=== PATIENT | female | born 1940 | race African-American/Black ===

== ENCOUNTER 2019-11-03 14:31 | Inpatient (IN) | payer MEDICARE, OTHER ==
[~2019-11-03] VITALS: Ht 162.6 cm; Wt 52.6 kg
--- NOTE | 2019-11-03 14:35 | NUR ---
pt bib private ambulance from [facility] to be medically cleared, for psych eval. pt restless and non-cooperative at this time.
--- NOTE | 2019-11-03 14:46 | NUR ---
security standby at bedside for safety precautions.
[2019-11-03] MEDS ORDERED: HALOPERIDOL LACTATE 5 MG/1 ML VIAL ONE (14:56)
[2019-11-03] MEDS ORDERED: LORAZEPAM 2 MG/1 ML VIAL ONE (14:57)
[2019-11-03] MEDS ORDERED: LORAZEPAM 2 MG/1 ML VIAL IM ONE (15:00)
[2019-11-03] MEDS ORDERED: HALOPERIDOL LACTATE 5 MG/1 ML VIAL IM ONE (15:00)
[2019-11-03] MEDS ORDERED: ATOR40TA PO (15:48)
[2019-11-03] MEDS ORDERED: MEMA10TA PO (15:48)
[2019-11-03] MEDS ORDERED: MULT-594 PO (15:48)
[2019-11-03] MEDS ORDERED: AMIN30LI2 PO (15:48)
[2019-11-03] MEDS ORDERED: CLON1PAT TD (15:48)
[2019-11-03] MEDS ORDERED: METO25TA6 PO (15:48)
[2019-11-03] MEDS ORDERED: NA P133E RC (15:48)
[2019-11-03] MEDS ORDERED: MAGN400O6 PO (15:48)
[2019-11-03] MEDS ORDERED: ACET-2154 PO (15:48)
[2019-11-03] MEDS ORDERED: ISOS30TA6 PO (15:48)
[2019-11-03] MEDS ORDERED: HYDR50TA68 PO (15:48)
[2019-11-03] MEDS ORDERED: DIVA125C2 PO (15:48)
[2019-11-03] MEDS ORDERED: LOPE2CAP PO (15:48)
[2019-11-03 15:59] LABS: BASOPHILS # (AUTO) 0.1 K/uL (0.0-8.0); EOSINOPHILS # (AUTO) 0.2 K/uL (0.0-0.7); EOSINOPHILS % (AUTO) 3.1 % (0.0-7.0); HEMATOCRIT 32.4 % (31.2-41.9); HEMOGLOBIN 10.8 g/dL (10.9-14.3); LYMPHOCYTES # (AUTO) 2.7 K/uL (20.0-40.0); LYMPHOCYTES % (AUTO) 53.6 % (20.5-51.5); MEAN CORPUSCULAR HEMOGLOBIN 30.9 uug (24.7-32.8); MEAN CORPUSCULAR HGB CONC 33 g/dL (32.3-35.6); MEAN CORPUSCULAR VOLUME 93.1 fL (75.5-95.3); MONOCYTES # (AUTO) 0.5 K/uL (2.0-10.0); MONOCYTES % (AUTO) 10.8 % (0.0-11.0); NEUTROPHILS # (AUTO) 1.6 K/uL (1.8-8.9); NEUTROPHILS % (AUTO) 31.5 % (38.5-71.5); PLATELET COUNT (AUTO) 205 K/uL (179-408); RED BLOOD CELL COUNT(AUTO) 3.48 MIL/uL (3.63-4.92)
[2019-11-03 16:20] LABS: MAGNESIUM 1.8 mg/dL (1.8-2.4)
[2019-11-03 16:22] LABS: ALANINE AMINOTRANSFERASE 19 U/L (14-59); ALKALINE PHOSPHATASE 85 U/L (50-136); ASPARTATE AMINOTRANSFERASE 23 U/L (15-37); BILIRUBIN,DIRECT 0.1 mg/dL (0.0-0.2); BILIRUBIN,TOTAL 0.3 mg/dL (0.2-1.0); CARBON DIOXIDE 29 mmol/L (21-32); CHLORIDE 101 mmol/L (98-107); CREATININE 0.9 mg/dL (0.6-1.3); GLUCOSE 95 mg/dL (74-106); POTASSIUM 3.9 mmol/L (3.5-5.1); TOTAL PROTEIN, SERUM 6.3 g/dL (6.4-8.2); UREA NITROGEN, BLOOD 11 mg/dL (7-18)
[2019-11-03 16:23] LABS: ACETAMINOPHEN < 2.0 ug/mL (10-30)
[2019-11-03 16:29] LABS: *BILIRUBIN,URIN NEGATIVE (NEGATIVE); *BLOOD, URINE NEGATIVE (NEGATIVE); *COLOR,URINE YELLOW (YELLOW); *KETONES,URINE NEGATIVE (NEGATIVE); *UROBILINOGEN,URINE 0.2 E.U./dl (NORMAL); LEUKOCYTE ESTERASE ,URINE 1+ (NEGATIVE); NITRITE, URINE POSITIVE (NEGATIVE); PH,URINE 7.5 (5.0-8.0); UGLUCOSE NEGATIVE (NEGATIVE)
[2019-11-03 16:29] LABS: THYROID STIMULATING HORMONE 1.239 mIU/mL (0.358-3.740)
[2019-11-03 16:32] LABS: ETHANOL < 3 MG/DL (0-0)
[2019-11-03 16:54] LABS: *AMPHETAMINE, URINE NEGATIVE (NEGATIVE); *BARBITURATE, URINE NEGATIVE (NEGATIVE); *CANNABINOID, URINE NEGATIVE (NEGATIVE); *COCCAINE, URINE NEGATIVE (NEGATIVE); *OPIATE, URINE NEGATIVE (NEGATIVE); *PHENCYCLIDINE SCREEN,URINE NEGATIVE (NEGATIVE)
[2019-11-03] MEDS ORDERED: CEFEPIME HCL 1 G VIAL IM ONE (17:15)
[2019-11-03] MEDS ORDERED: CEFEPIME HCL 1 G VIAL ONE (17:36)
--- NOTE | 2019-11-03 17:49 | NUR ---
pt has been placed on 5150 hold for GD at 1720 on 11/03/2019
--- NOTE | 2019-11-03 18:30 | NUR ---
called [facility] to give admitting report, unable to reach nurse.
[2019-11-03 18:35] LABS: *CLARITY,URINE SLIGHTLY HAZY (CLEAR); BACTERIA,URINE MODERATE /HPF (NONE SEEN); RBC,URINE 0-3 /HPF (0-3)
--- NOTE | 2019-11-03 18:49 | NUR ---
sriram report given to Benjamin WHEELER
--- NOTE | 2019-11-03 19:00 | NUR ---
Pt. admitted to GPS 145C , under care of Dr. Sotelo/Mani Belongs List completed
[2019-11-03 20:24] VITALS: BP 124/57
[2019-11-03] MEDS ORDERED: MAGNESIUM HYDROXIDE 30 ML LIQUID UDC PO PRN (20:30)
[2019-11-03] MEDS ORDERED: MAG HYDROX/AL HYDROX/SIMETH 30 ML LIQUID UDC PO PRN (20:30)
[2019-11-03] MEDS: LORAZEPAM 0.5 MG TABLET PO PRN (20:45)
--- NOTE | 2019-11-04 02:35 | NUR ---
GPS/RN: NEW ADMIT 79Y/O FEMALE TO MHU FROM ER. PT ON 5150 FOR GD UNDER THE CARE OF DR BAER AND DR CHAVARRIA WITH DX OF PSYCHOSIS. ACCORDING TO THE 5150, PT WAS AGGRESSIVE AND RESTLESS, UNMANAGEABLE AT THE FACILITY. PT WAS HITTING OTHERS AND RESTLESS. UPON FACE TO FACE ASSESSMENT, PT A/OX1, AND CONFUSE. PT WAS NOT ABLE TO COMMUNICATE COHERENTLY. PT REFUSED SHOWER. PT RIGHT HANDBOOK AND ADVISEMENT GIVEN, UNIT RULES UNABLE TO EXPLAINED DUE TO PT CONDITION. MD'S NOTIFIED AND ORDERS PLACED. PT SON CALLED AND NOTIFIED OF ADMISSION TO UNIT. Q/15MNS ROUNDING INITIATED FOR SAFETY.
[2019-11-04] MEDS ORDERED: BLOOD SUGAR DIAGNOSTIC 1 EACH STRIP VI ONE (06:00)
[2019-11-04 07:30] VITALS: BP 159/56
--- NOTE | 2019-11-04 08:00 | NUR ---
GPS: received patient in erma chair, patient somewhat confused at this time, patient able top eat her breakfast , assisted with shower, denies SI and HI
--- NOTE | 2019-11-04 08:51 | NUR ---
SNF CONTACT: SW received a call from Luzmaria facility coordinator at [facility] ([facility]) located at [address] [place] [id number]; ([phone]) stating that pt will be returning to the facility once stable for discharge.
--- NOTE | 2019-11-04 09:31 | NUR ---
INITIAL DISCHARGE PLAN: Pt currently resides and will return to [facility] located at [address] [place] [id number]; [phone]. Per son Rojelio [phone] he wishes for pt to return back to the facility. CAROLYN will work with the pt and the MD regarding appropriate discharge planning. SW will form a safe and proper discharge.
[2019-11-04] MEDS: METOPROLOL TARTRATE 25 MG TABLET PO SCH ×2 (12:30→20:21)
[2019-11-04] MEDS ORDERED: CLONIDINE-TTS 1 PATCH TD SCH (12:30)
[2019-11-04] MEDS: DIVALPROEX SPRINKLE 125 MG CAP.SPRINK PO SCH ×2 (12:48→16:30)
[2019-11-04] MEDS: risperiDONE 0.5 MG TABLET PO SCH ×2 (12:48→20:22)
[2019-11-04] MEDS: MEMANTINE HCL 5 MG TABLET PO SCH ×2 (13:07→20:22)
[2019-11-04] MEDS: SULFAMETH/TRIMETH 800/160 MG TABLET PO SCH ×2 (13:07→20:21)
[2019-11-04 16:09] VITALS: BP 173/1
[2019-11-04] MEDS: PROTEIN SUPPLEMENT (PROSTAT) 30 ML LIQUID PO SCH (16:31)
[2019-11-04] MEDS: hydrALAZINE HCL 50 MG TABLET PO SCH (16:31)
[2019-11-04] MEDS: ATORVASTATIN 40 MG TABLET PO SCH (17:08)
[2019-11-04 20:12] VITALS: BP 170/68
[2019-11-04] MEDS: CULTURELLE CAPSULE PO SCH (20:22)
[2019-11-04] MEDS: LORAZEPAM 0.5 MG TABLET PO PRN (21:29)
[2019-11-04 21:45] VITALS: BP 139/75
[2019-11-05] MEDS: LORAZEPAM 0.5 MG TABLET PO PRN ×2 (05:59→21:57)
--- NOTE | 2019-11-05 06:53 | NUR ---
PT SLEPT 7 H. PT ANXIOUS AND KEEPS REPEATING THAT SHE NEEDS A DIAPER CHANGED BUT WHEN STAFF CHECKED PT IS DRY AND NO BOWEL MOVEMENT. PT GIVEN ATIVAN AT 2129H and 0559h FOR RESTLESSNESS AND ANXIETY. PT TOLERATED IT WELL. PT BLOOD PRESSURE WAS 170/68 FOR PT WAS ANXIOUS AT THAT TIME AT 2012H AFTER TAKING THE PRESCRIBED MEDICATION AND ATIVAN, PT BLOOD PRESSURE [id number] AT 2145H.PT NOW PUT ON HALLWAY AND CONFUSED STILL. NEED REORIENTATION. SAFETY AND COMFORT PROVIDED. PT TURNED AND REPOSITIONED Q2H. SAFETY AND COMFORT PROVIDED. WILL ENDORSE TO INCOMING NURSE.
[2019-11-05 07:30] VITALS: BP 131/54
--- NOTE | 2019-11-05 08:00 | NUR ---
GPS: received patient AOx1, on her erma chair, patient hyperverbal, irritable, patient attempted to get out of the chair, patient is o fall risk prevention, patient unable to contract safety at this time, patient needed prompting with her medication
[2019-11-05] MEDS: DIVALPROEX SPRINKLE 125 MG CAP.SPRINK PO SCH ×3 (08:10→16:34)
[2019-11-05] MEDS: CULTURELLE CAPSULE PO SCH ×2 (08:10→20:35)
[2019-11-05] MEDS: risperiDONE 0.5 MG TABLET PO SCH ×2 (08:10→20:35)
[2019-11-05] MEDS: SULFAMETH/TRIMETH 800/160 MG TABLET PO SCH ×2 (08:10→20:43)
[2019-11-05] MEDS: METOPROLOL TARTRATE 25 MG TABLET PO SCH ×2 (08:11→20:59)
[2019-11-05] MEDS: MULTIVITAMINS,THERAPEUTIC TABLET PO SCH (08:11)
[2019-11-05] MEDS: PROTEIN SUPPLEMENT (PROSTAT) 30 ML LIQUID PO SCH ×2 (08:12→16:34)
[2019-11-05] MEDS: MEMANTINE HCL 5 MG TABLET PO SCH ×2 (08:40→20:35)
[2019-11-05] MEDS: ISOSORBIDE MONONITRATE 30 MG TAB.SR.24H PO SCH (08:40)
[2019-11-05] MEDS: hydrALAZINE HCL 50 MG TABLET PO SCH ×2 (08:41→16:34)
--- NOTE | 2019-11-05 09:00 | NUR ---
GPS: Emergency Chemical restrain, patient screaming and yelling, throwing her food on the floor patient resisted to care, selective with medication, patient grab the staff and attempted to hit the staff, call and spoke with Dr. figueredo , order made and carried out, patient tolerated the medication
[2019-11-05] MEDS ORDERED: HALOPERIDOL LACTATE 5 MG/1 ML VIAL IM ONE (09:15)
[2019-11-05] MEDS ORDERED: LORAZEPAM 2 MG/1 ML VIAL IM ONE (09:15)
--- NOTE | 2019-11-05 14:14 | NUR ---
Social Work Firearms Report: Chief Ii Dispatcher completed and submitted a [employer] firearms report for 5250 grave disability certification. A copy of report has been placed in patient chart.
--- NOTE | 2019-11-05 14:36 | NUR ---
Social Work Individual Therapy: precision printing worker met with patient for brief counseling to address patient's aggressive and combative behavior. Patient is not cooperative with this newswriter and is unable to have meaningful conversation due to her aggressive behavior. Patient has been attempting to hit staff. This newswriter was unable to provide brief therapy at the moment.
--- NOTE | 2019-11-05 16:46 | NUR ---
patient unable to take oral medication in the afternoon, patient still sedated from the emergency IM shot this morning
[2019-11-05 17:12] VITALS: BP 171/60
[2019-11-05] MEDS: ATORVASTATIN 40 MG TABLET PO SCH (17:51)
--- NOTE | 2019-11-05 18:17 | NUR ---
patient woke up and assited with her ADL patient took her pm medication at this time, no distress,
--- NOTE | 2019-11-05 20:40 | NUR ---
Received patient in Dariela-chair. Confused.Able to make needs known. Redirectable. Compliant with medication. Continue to monitor.
[2019-11-05 21:02] VITALS: BP 182/68
[2019-11-05] MEDS ORDERED: LISINOPRIL 10 MG TABLET ONE (21:50)
[2019-11-05] MEDS: LISINOPRIL 5 MG TABLET PO SCH (21:54)
--- NOTE | 2019-11-05 22:52 | NUR ---
Metoprolol 25 mg was held due to low HR: 54. But Patient had high BP: 182/62. Contacted [facility] on-call and received order of Lisinopril 2.5 mg Daily, first dose at [facility] from Dr. Emeterio Singleton. Medication administered. Rechecked the BP:133/70, HR: 59. Continue to monitor.
[2019-11-05] MEDS: TEMAZEPAM 7.5 MG CAPSULE PO PRN (23:14)
[2019-11-06] MEDS: LORAZEPAM 0.5 MG TABLET PO PRN ×2 (03:55→13:36)
[2019-11-06 07:30] VITALS: BP 175/63
[2019-11-06] MEDS: DIVALPROEX SPRINKLE 125 MG CAP.SPRINK PO SCH ×3 (08:08→17:36)
[2019-11-06] MEDS: SULFAMETH/TRIMETH 800/160 MG TABLET PO SCH ×2 (08:08→20:34)
[2019-11-06] MEDS: MULTIVITAMINS,THERAPEUTIC TABLET PO SCH (08:08)
[2019-11-06] MEDS: CULTURELLE CAPSULE PO SCH ×2 (08:09→20:35)
[2019-11-06] MEDS: MEMANTINE HCL 5 MG TABLET PO SCH ×2 (08:09→20:34)
[2019-11-06] MEDS: risperiDONE 0.5 MG TABLET PO SCH ×2 (08:09→20:34)
[2019-11-06] MEDS: PROTEIN SUPPLEMENT (PROSTAT) 30 ML LIQUID PO SCH ×2 (08:09→17:00)
[2019-11-06] MEDS: ISOSORBIDE MONONITRATE 30 MG TAB.SR.24H PO SCH (08:12)
[2019-11-06] MEDS: LISINOPRIL 5 MG TABLET PO SCH (08:13)
[2019-11-06] MEDS: hydrALAZINE HCL 50 MG TABLET PO SCH ×2 (09:50→17:00)
[2019-11-06] MEDS: METOPROLOL TARTRATE 25 MG TABLET PO SCH ×2 (09:50→20:34)
[2019-11-06 10:32] VITALS: BP 106/66
[2019-11-06] MEDS: ACETAMINOPHEN 325 MG TABLET PO PRN (14:38)
[2019-11-06 16:00] VITALS: BP 115/60
--- NOTE | 2019-11-06 18:35 | NUR ---
Pt received resting in Dariela-chair, confused, able to make needs known. Pleasant upon approach. cooperative with medications crushed. No behavioral issues throughout most of the shift, except lunging with both hands at nurse. PRN Ativan administered for anxiety and aggressive behavior, Sundowning still evident. Hydralazine 100mg BID held due to BP 115/60. No acute distress noted. Will continue to monitor.
[2019-11-06 20:00] VITALS: BP 113/70
[2019-11-06] MEDS: ATORVASTATIN 40 MG TABLET PO SCH (20:34)
[2019-11-06] MEDS: TEMAZEPAM 7.5 MG CAPSULE PO PRN (22:56)
--- NOTE | 2019-11-07 06:57 | NUR ---
Patient intermittently sleeping,compliant with meds. Slept for 6.30 hrs .kept clean and dry .
[2019-11-07 07:30] VITALS: BP 149/66
[2019-11-07] MEDS: DIVALPROEX SPRINKLE 125 MG CAP.SPRINK PO SCH ×3 (08:29→16:19)
[2019-11-07] MEDS: MEMANTINE HCL 5 MG TABLET PO SCH ×2 (08:29→21:34)
[2019-11-07] MEDS: risperiDONE 0.5 MG TABLET PO SCH ×2 (08:32→21:33)
[2019-11-07] MEDS: METOPROLOL TARTRATE 25 MG TABLET PO SCH ×2 (08:32→21:33)
[2019-11-07] MEDS: MULTIVITAMINS,THERAPEUTIC TABLET PO SCH (08:32)
[2019-11-07] MEDS: ISOSORBIDE MONONITRATE 30 MG TAB.SR.24H PO SCH (08:34)
[2019-11-07] MEDS: hydrALAZINE HCL 50 MG TABLET PO SCH ×2 (08:34→16:18)
[2019-11-07] MEDS: CULTURELLE CAPSULE PO SCH ×2 (08:34→21:33)
[2019-11-07] MEDS: LISINOPRIL 5 MG TABLET PO SCH (08:35)
[2019-11-07] MEDS: PROTEIN SUPPLEMENT (PROSTAT) 30 ML LIQUID PO SCH ×2 (08:35→16:20)
[2019-11-07] MEDS: LORAZEPAM 0.5 MG TABLET PO PRN (11:26)
[2019-11-07 16:21] VITALS: BP 108/60
--- NOTE | 2019-11-07 17:57 | NUR ---
patient is compliant with meds, no distress noted, denied hallucinations, denied suicidal thoughts.continue to monitor per facility protocol
[2019-11-07 20:19] VITALS: BP 112/60
[2019-11-07] MEDS: ATORVASTATIN 40 MG TABLET PO SCH (21:34)
[2019-11-08 07:30] VITALS: BP 101/62
[2019-11-08 07:37] LABS: CREATININE 1.2 mg/dL (0.6-1.3); POTASSIUM 5.7 mmol/L (3.5-5.1)
[2019-11-08] MEDS: METOPROLOL TARTRATE 25 MG TABLET PO SCH ×2 (09:00→21:00)
[2019-11-08] MEDS: hydrALAZINE HCL 50 MG TABLET PO SCH ×2 (09:00→16:25)
[2019-11-08] MEDS: PROTEIN SUPPLEMENT (PROSTAT) 30 ML LIQUID PO SCH ×2 (09:00→16:25)
[2019-11-08] MEDS: LISINOPRIL 5 MG TABLET PO SCH (09:00)
[2019-11-08] MEDS: MULTIVITAMINS,THERAPEUTIC TABLET PO SCH (09:22)
[2019-11-08] MEDS: risperiDONE 0.5 MG TABLET PO SCH ×3 (09:22→22:05)
[2019-11-08] MEDS: ISOSORBIDE MONONITRATE 30 MG TAB.SR.24H PO SCH (09:22)
[2019-11-08] MEDS: MEMANTINE HCL 5 MG TABLET PO SCH ×3 (09:22→22:05)
[2019-11-08] MEDS: DIVALPROEX SPRINKLE 125 MG CAP.SPRINK PO SCH ×3 (09:22→16:24)
[2019-11-08] MEDS: CULTURELLE CAPSULE PO SCH ×3 (09:23→22:05)
[2019-11-08] MEDS: ACETAMINOPHEN 325 MG TABLET PO PRN (10:28)
[2019-11-08] MEDS: LORAZEPAM 0.5 MG TABLET PO PRN (14:01)
[2019-11-08 16:00] VITALS: BP 96/45
--- NOTE | 2019-11-08 18:17 | NUR ---
patient had a good dinner, verbalizes that she had a good day, patient also somewhat confused, verbalizing that she will go home today, reinforce reality, patient is no distress at this time
[2019-11-08 20:00] VITALS: BP 129/54
--- NOTE | 2019-11-08 20:00 | NUR ---
Received patient in the hallway, sitting in a erma chair closed to the nursing station. She is noted A/O x1. she is confused, disorganized speech, impaired insight and judgment is noted as to the reason for her admission to MHU. she required multiple redirection. she is noted restless and agitated. Ativan 0.5 mg PO PRN was offered; however, patient refused. will continue with redirection and reassurance. safety and fall precaution in place. will continue to monitor.
[2019-11-08] MEDS: ATORVASTATIN 40 MG TABLET PO SCH (22:05)
--- NOTE | 2019-11-08 23:00 | NUR ---
patient refused all her medications. multiple attempts and redirections given, yet ineffective. will continue to monitor.
--- NOTE | 2019-11-09 00:32 | NUR ---
patient in bed. she is noted restless fidgeting unable to fall asleep. Temazepam 7.5 mg Po pRN was offered; however, pt refused Addendum: 11/09/19 at 0034 by JAMIE GODOY RN Safety and fall precaution in place. will continue to monitor.
[2019-11-09 07:30] VITALS: BP 124/54
--- NOTE | 2019-11-09 08:00 | NUR ---
GPS: received patient Aox1, patient confused, patient compliant with medication, patient seen by PT , patient tolerated the therapy, no distress at this time, will continue monitor
[2019-11-09] MEDS: MEMANTINE HCL 5 MG TABLET PO SCH ×2 (08:02→20:29)
[2019-11-09] MEDS: LORAZEPAM 0.5 MG TABLET PO PRN ×2 (08:02→23:08)
[2019-11-09] MEDS: CULTURELLE CAPSULE PO SCH ×2 (08:02→20:29)
[2019-11-09] MEDS: DIVALPROEX SPRINKLE 125 MG CAP.SPRINK PO SCH ×2 (08:03→16:21)
[2019-11-09] MEDS: risperiDONE 0.5 MG TABLET PO SCH ×2 (08:03→20:29)
[2019-11-09] MEDS: hydrALAZINE HCL 50 MG TABLET PO SCH ×2 (09:00→16:22)
[2019-11-09] MEDS: MULTIVITAMINS,THERAPEUTIC TABLET PO SCH (09:00)
[2019-11-09] MEDS: LISINOPRIL 5 MG TABLET PO SCH (09:00)
[2019-11-09] MEDS: PROTEIN SUPPLEMENT (PROSTAT) 30 ML LIQUID PO SCH ×2 (09:00→16:21)
[2019-11-09] MEDS: METOPROLOL TARTRATE 25 MG TABLET PO SCH ×2 (09:00→20:29)
[2019-11-09] MEDS: ISOSORBIDE MONONITRATE 30 MG TAB.SR.24H PO SCH (09:00)
--- NOTE | 2019-11-09 15:07 | NUR ---
Social Work Individual Therapy: marble worker met with patient for brief counseling to address patient's aggressive and combative behavior. Patient is unable to have a meaningful conversation with this financial writer due to her dementia. Patient was unable to comprehend what this financial writer was stating. This financial writer was unable to provide brief therapy at this moment.
[2019-11-09 15:42] VITALS: BP 128/64
--- NOTE | 2019-11-09 18:16 | NUR ---
patient remain calm cooperative,confused but redirectable, no distress, denies Si and Hi
[2019-11-09 20:00] VITALS: BP 168/68
[2019-11-09] MEDS: ATORVASTATIN 40 MG TABLET PO SCH (20:41)
--- NOTE | 2019-11-09 21:10 | NUR ---
Received pt sitting in the erma- chair, in the hallway. No acute distress noted. Noted to be confused. Due meds given, crushed meds with pudding was tolerated well. Safety measures maintained. Will continue to monitor.
[2019-11-09 23:15] VITALS: BP 140/50
[2019-11-10 07:21] LABS: CREATININE 1.1 mg/dL (0.6-1.3); POTASSIUM 4.8 mmol/L (3.5-5.1)
[2019-11-10 07:30] VITALS: BP 164/46
[2019-11-10] MEDS: MULTIVITAMINS,THERAPEUTIC TABLET PO SCH (08:23)
[2019-11-10] MEDS: risperiDONE 0.5 MG TABLET PO SCH ×2 (08:23→20:51)
[2019-11-10] MEDS: DIVALPROEX SPRINKLE 125 MG CAP.SPRINK PO SCH ×2 (08:23→16:38)
[2019-11-10] MEDS: METOPROLOL TARTRATE 25 MG TABLET PO SCH ×2 (08:24→20:51)
[2019-11-10] MEDS: MEMANTINE HCL 5 MG TABLET PO SCH ×2 (08:24→20:51)
[2019-11-10] MEDS: CULTURELLE CAPSULE PO SCH ×2 (08:25→20:51)
[2019-11-10] MEDS: hydrALAZINE HCL 50 MG TABLET PO SCH ×2 (08:25→16:39)
[2019-11-10] MEDS: LISINOPRIL 5 MG TABLET PO SCH (08:26)
[2019-11-10] MEDS: ISOSORBIDE MONONITRATE 30 MG TAB.SR.24H PO SCH (08:27)
[2019-11-10] MEDS: PROTEIN SUPPLEMENT (PROSTAT) 30 ML LIQUID PO SCH ×2 (08:29→16:41)
[2019-11-10] MEDS: LORAZEPAM 0.5 MG TABLET PO PRN (14:51)
[2019-11-10] MEDS: GLUCERNA SHAKE VANILLA 237 ML CAN PO SCH (16:41)
[2019-11-10 16:42] VITALS: BP 100/50
[2019-11-10 20:41] VITALS: BP 147/60
[2019-11-10] MEDS: ATORVASTATIN 40 MG TABLET PO SCH (20:51)
--- NOTE | 2019-11-11 06:35 | NUR ---
Pt slept 9.0 hrs. No aggressive behavior observed. Had large loose BM in am. Cdiff result still pending. Shower was given.
[2019-11-11 07:00] VITALS: BP 119/39
[2019-11-11 07:30] VITALS: BP 123/53
[2019-11-11] MEDS: PROTEIN SUPPLEMENT (PROSTAT) 30 ML LIQUID PO SCH ×2 (09:00→16:41)
[2019-11-11] MEDS: DIVALPROEX SPRINKLE 125 MG CAP.SPRINK PO SCH ×2 (09:10→16:43)
[2019-11-11] MEDS: risperiDONE 0.5 MG TABLET PO SCH ×2 (09:10→20:40)
[2019-11-11] MEDS: MULTIVITAMINS,THERAPEUTIC TABLET PO SCH (09:10)
[2019-11-11] MEDS: MEMANTINE HCL 5 MG TABLET PO SCH ×2 (09:10→20:40)
[2019-11-11] MEDS: METOPROLOL TARTRATE 25 MG TABLET PO SCH ×2 (09:11→20:59)
[2019-11-11] MEDS: hydrALAZINE HCL 50 MG TABLET PO SCH ×2 (09:12→16:40)
[2019-11-11] MEDS: CULTURELLE CAPSULE PO SCH ×2 (09:12→20:39)
[2019-11-11] MEDS: ISOSORBIDE MONONITRATE 30 MG TAB.SR.24H PO SCH (09:13)
[2019-11-11] MEDS: LISINOPRIL 5 MG TABLET PO SCH (09:13)
[2019-11-11] MEDS: GLUCERNA SHAKE VANILLA 237 ML CAN PO SCH ×3 (09:35→17:00)
[2019-11-11 16:00] VITALS: BP 101/49
--- NOTE | 2019-11-11 17:16 | NUR ---
gave report to alfonso bajwa OF
--- NOTE | 2019-11-11 19:30 | NUR ---
PATIENT AWAKE VERBALLY RESPONSIVE, NO COMPLAIN OF PAIN AT THIS TIME. PATIENT CALM AT THIS TIME, CONT 1;1 SITTER FOR SAFETY, KEPT CLEAN AND DRY.
[2019-11-11] MEDS: ATORVASTATIN 40 MG TABLET PO SCH (20:39)
[2019-11-12 04:00] VITALS: BP 144/53
--- NOTE | 2019-11-12 05:25 | NUR ---
PATIENT ALERT BUT WITH CONFUSION, NO COMPLAIN OF PAIN NOR DISCOMFORT. PATIENT CALM AT THIS TIME, RENDERED GOOD JUSTUS CARE DUE BLADDER INCONTINENT. PATIENT SLEPT SEVER HOURS AND FORTY FIVE MINUTES (7.45), PATIENT DRINKS FLUIDS WHEN OFFERED. CONT 1;1 SITTER FOR SAFETY.
[2019-11-12] MEDS: LOPERAMIDE HCL 2 MG CAPSULE PO PRN ×2 (06:42→17:30)
--- NOTE | 2019-11-12 06:48 | NUR ---
PATIENT HAD THREE LOSE BM MIXED WITH URINE, GIVEN IMODIUM TAB ORDERED, RENDERED GOOD JUSTUS CARE, INSTRUCTED SITTER NOT GIVE DAIRY PRODUCTS TO PATIENT DUE TO HER LACTOSE INTOLERANCE, WILL ENDORSE TO EXT SHIFT.
[2019-11-12 07:30] VITALS: BP 151/64
--- NOTE | 2019-11-12 08:00 | NUR ---
received pt. resting in bed alert oriented x1. pt. is on 14 day hold with sitter at bedside for safety. pt. is calm when approached, compliant with plan of care. pt. denies pain/ discomfort. pt. denies sob/ difficulty breathing. safety measures in place. call light within reach. will continue to monitor pt.
[2019-11-12] MEDS: MEMANTINE HCL 5 MG TABLET PO SCH ×2 (08:18→20:40)
[2019-11-12] MEDS: risperiDONE 0.5 MG TABLET PO SCH ×2 (08:18→20:40)
[2019-11-12] MEDS: DIVALPROEX SPRINKLE 125 MG CAP.SPRINK PO SCH ×2 (08:18→17:30)
[2019-11-12] MEDS: MULTIVITAMINS,THERAPEUTIC TABLET PO SCH (08:18)
[2019-11-12] MEDS: CULTURELLE CAPSULE PO SCH ×2 (08:18→20:39)
[2019-11-12] MEDS: PROTEIN SUPPLEMENT (PROSTAT) 30 ML LIQUID PO SCH ×2 (08:20→17:31)
[2019-11-12] MEDS: GLUCERNA SHAKE VANILLA 237 ML CAN PO SCH ×3 (08:22→17:00)
[2019-11-12] MEDS: ISOSORBIDE MONONITRATE 30 MG TAB.SR.24H PO SCH (08:23)
[2019-11-12] MEDS: hydrALAZINE HCL 50 MG TABLET PO SCH ×2 (08:24→17:31)
[2019-11-12] MEDS: METOPROLOL TARTRATE 25 MG TABLET PO SCH ×2 (11:09→20:41)
[2019-11-12] MEDS: LISINOPRIL 5 MG TABLET PO SCH (11:10)
[2019-11-12 15:00] VITALS: BP 144/51
--- NOTE | 2019-11-12 18:19 | NUR ---
pt. compliant with plan of care. pt. took all medications as needed. pt. had 1 episode of diarrhea provided pt. with PRN imodium. safete measures in place. 1:1 sitter at bedside. will endorse to pm nurse
[2019-11-12 20:00] VITALS: BP 117/55
--- NOTE | 2019-11-12 20:00 | NUR ---
Patient received into care, laying in bed watching television, with 1:1 sitter at bedside. Pt is alert/oriented x1 and has no complaints of pain or discomfort at this time. All safety, fall, allergy, and GPS precautions are in place. Will continue to monitor and assess.
[2019-11-12] MEDS: ATORVASTATIN 40 MG TABLET PO SCH (20:40)
--- NOTE | 2019-11-12 20:41 | NUR ---
This nurse withheld 2100h scheduled Metoprolol d/t decreased systolic blood pressure: 107/48 hr 77.
--- NOTE | 2019-11-13 | NUR ---
Hand-off report given to SUMMER Alfaro.
--- NOTE | 2019-11-13 00:01 | NUR ---
HANDS OFF REPORT RECEIVED FROM SUMMER COHEN. SITTER AT BEDSIDE FOR SAFETY. PT IN NO ACUTE DISTRESS. SAFETY AND COMFORT PROVIDED. WILL CONTINUE TO MONITOR.
[2019-11-13 04:00] VITALS: BP 146/46
--- NOTE | 2019-11-13 06:19 | NUR ---
PT SLEPT 9 HOURS. SITTER FOR SAFETY. PRESCRIBED MEDICATION GIVEN AND PT TOLERATED IT WELL. SAFETY AND COMFORT PROVIDED. PT TURNED AND REPOSITIONED. ALL NEEDS ARE MET. WILL ENDORSE TO INCOMING NURSE FOR CONTINUITY OF CARE.
[2019-11-13 08:00] VITALS: BP 123/55
[2019-11-13] MEDS: hydrALAZINE HCL 50 MG TABLET PO SCH ×2 (08:20→17:00)
[2019-11-13] MEDS: DIVALPROEX SPRINKLE 125 MG CAP.SPRINK PO SCH ×2 (08:21→17:00)
[2019-11-13] MEDS: CULTURELLE CAPSULE PO SCH ×2 (08:21→20:29)
[2019-11-13] MEDS: GLUCERNA SHAKE VANILLA 237 ML CAN PO SCH ×3 (08:22→17:00)
[2019-11-13] MEDS: METOPROLOL TARTRATE 25 MG TABLET PO SCH ×2 (08:22→20:29)
[2019-11-13] MEDS: ISOSORBIDE MONONITRATE 30 MG TAB.SR.24H PO SCH (08:22)
[2019-11-13] MEDS: LISINOPRIL 5 MG TABLET PO SCH (08:23)
[2019-11-13] MEDS: MEMANTINE HCL 5 MG TABLET PO SCH ×2 (08:23→20:29)
[2019-11-13] MEDS: MULTIVITAMINS,THERAPEUTIC TABLET PO SCH (08:23)
[2019-11-13] MEDS: risperiDONE 0.5 MG TABLET PO SCH ×2 (08:23→20:29)
[2019-11-13] MEDS: PROTEIN SUPPLEMENT (PROSTAT) 30 ML LIQUID PO SCH ×2 (08:24→17:00)
--- NOTE | 2019-11-13 10:53 | NUR ---
Pt remains awake,alert.No s/s of discomfort.Pt is cooperative with care.Plan of care update.Sitter 1:1 at bedside.Will continue to monitor.
[2019-11-13 17:20] VITALS: BP 122/60
[2019-11-13 19:33] VITALS: BP 111/66
--- NOTE | 2019-11-13 20:00 | NUR ---
Patient received into care, laying in bed, watching television with 1:1 sitter at bedside. Patient is alert/oriented x2 and verbally responsive. Patient has no complaints of pain or discomfort at this time. All safety, fall, allergy, and GPS precautions are in place. Will continue to monitor and assess.
[2019-11-13] MEDS: ATORVASTATIN 40 MG TABLET PO SCH (20:29)
--- NOTE | 2019-11-13 20:30 | NUR ---
This nurse withheld 2100h prescribed Metoprolol d/t decreased systolic BP 109/64 HR 60
[2019-11-14 04:40] VITALS: BP 133/62
--- NOTE | 2019-11-14 05:00 | NUR ---
Patient slept well throughout night with 1:1 sitter at bedside. Patient had no complaints of pain or discomfort this shift and was compliant with all aspects of care and medicine regime. All safety, allergy, fall, and GPS precautions remain in place.
--- NOTE | 2019-11-14 05:32 | NUR ---
Patient slept 7 hours this shift.
[2019-11-14 08:00] VITALS: BP 102/54
[2019-11-14] MEDS: hydrALAZINE HCL 50 MG TABLET PO SCH ×3 (08:29→16:32)
[2019-11-14] MEDS: CULTURELLE CAPSULE PO SCH ×2 (08:30→20:13)
[2019-11-14] MEDS: MULTIVITAMINS,THERAPEUTIC TABLET PO SCH (08:30)
--- NOTE | 2019-11-14 08:30 | NUR ---
awake alert oriented to self, calm and cooperative, states had a good breakfast, likes the food, took all meds and compliant with care, safety measures maintained, 1:1 sitter at bedside
[2019-11-14] MEDS: risperiDONE 0.5 MG TABLET PO SCH ×2 (08:31→20:13)
[2019-11-14] MEDS: MEMANTINE HCL 5 MG TABLET PO SCH ×2 (08:31→20:13)
[2019-11-14] MEDS: METOPROLOL TARTRATE 25 MG TABLET PO SCH ×3 (08:31→21:00)
[2019-11-14] MEDS: ISOSORBIDE MONONITRATE 30 MG TAB.SR.24H PO SCH ×2 (08:32→10:04)
[2019-11-14] MEDS: LISINOPRIL 5 MG TABLET PO SCH ×2 (08:33→10:02)
[2019-11-14] MEDS: PROTEIN SUPPLEMENT (PROSTAT) 30 ML LIQUID PO SCH ×2 (08:34→17:20)
[2019-11-14] MEDS: GLUCERNA SHAKE VANILLA 237 ML CAN PO SCH ×3 (08:36→16:33)
[2019-11-14] MEDS: DIVALPROEX SPRINKLE 125 MG CAP.SPRINK PO SCH ×2 (08:38→16:31)
[2019-11-14 12:06] VITALS: BP 141/48
[2019-11-14 16:00] VITALS: BP 135/52
--- NOTE | 2019-11-14 17:46 | NUR ---
pt compliant with care, took all meds without any problem, calm, confused but redirectable, denies of suicidal ideation, no hallucination noted, safety measures maintained, all needs attended and met, sitter at bedside
--- NOTE | 2019-11-14 19:10 | NUR ---
Received pt in bed, awake. Pt denies any acute distress or pain at this time. Pt denies any suicidal ideation or hallucination. Pt is calm and cooperative. V/S stable on room air. Afebrile. 1:1 sitter is on the bedside. Safety measures in place. Will continue with the plan of care
[2019-11-14] MEDS: ATORVASTATIN 40 MG TABLET PO SCH (20:13)
[2019-11-14 20:23] VITALS: BP 124/49
--- NOTE | 2019-11-14 22:58 | NUR ---
Gave report to SUMMER Cedeno of MHU. Transported to the unit for the continuity of care, via wheelchair. V/S stable.
[2019-11-15] MEDS: LORAZEPAM 0.5 MG TABLET PO PRN ×3 (00:30→22:38)
--- NOTE | 2019-11-15 02:44 | NUR ---
RECEIVED HER BACK FROM [facility]. A/OX 2 BUT CONFUSED.INITIALLY QUITE, BUT LATER TRIED GETTING OUT OF BED. SHE IS A FALL RISK.WHEN THIS WAS EXPLAINED TO HER SHE BECAME IRRITABLE,HYPERVERBAL, AND DEMANDING THAT HIS SON COME GET HER.WHEN HISTOLOGY TEACHER EXPLAINED TO HER IT WAS LATE SHE SAID;I HAVE HAD IT UP TO HERE WITH YOU, YOU FOOL'. YOU THINK YOU ARE SMART BUT YOU ARE NOTHING".SHE WAS LATER GIVEN TAB ATIVAN 0.5MG WITH MUCH PROMPTING FOR AGITATION. VISUAL CHECKS MADE ON HER FOR SAFETY. WILL CONTINUE TO MONITOR.
--- NOTE | 2019-11-15 06:48 | NUR ---
SLEPT 4:15 HOURS. UP AND TAKEN A SHOWER.
[2019-11-15 07:30] VITALS: BP 157/59
[2019-11-15] MEDS: MEMANTINE HCL 5 MG TABLET PO SCH ×2 (08:02→21:01)
[2019-11-15] MEDS: METOPROLOL TARTRATE 25 MG TABLET PO SCH ×2 (08:03→21:00)
[2019-11-15] MEDS: MULTIVITAMINS,THERAPEUTIC TABLET PO SCH (08:03)
[2019-11-15] MEDS: DIVALPROEX SPRINKLE 125 MG CAP.SPRINK PO SCH ×2 (08:03→16:46)
[2019-11-15] MEDS: risperiDONE 0.5 MG TABLET PO SCH ×2 (08:03→21:01)
[2019-11-15] MEDS: PROTEIN SUPPLEMENT (PROSTAT) 30 ML LIQUID PO SCH ×2 (09:00→17:17)
[2019-11-15] MEDS: GLUCERNA SHAKE VANILLA 237 ML CAN PO SCH ×3 (09:00→17:16)
[2019-11-15] MEDS: hydrALAZINE HCL 50 MG TABLET PO SCH ×2 (10:17→16:47)
[2019-11-15] MEDS: LISINOPRIL 5 MG TABLET PO SCH (10:18)
[2019-11-15] MEDS: CULTURELLE CAPSULE PO SCH ×2 (10:18→21:01)
[2019-11-15] MEDS: ISOSORBIDE MONONITRATE 30 MG TAB.SR.24H PO SCH (10:18)
[2019-11-15] MEDS: ACETAMINOPHEN 325 MG TABLET PO PRN (12:19)
--- NOTE | 2019-11-15 13:25 | NUR ---
Gps/Industrial Management Teacher- Kept patient in her erma-chair by the Nurses station for safety, Toileted at a regular intervals, continence noted. Fed self after set up, fluids offered. compliant with her routine meds. . Interacting with the staff, noted confusion and incoherent speech.
[2019-11-15 16:00] VITALS: BP 140/52
[2019-11-15 20:00] VITALS: BP 127/60
[2019-11-15] MEDS: ATORVASTATIN 40 MG TABLET PO SCH (20:59)
--- NOTE | 2019-11-16 01:56 | NUR ---
RECEIVED PATIENT IN BORIS CHAIR BY NURSES STATION . NOTED WITH SOME CONFUSION AND INCOHERENT SPEECH. HOWEVER COMPLIANT WITH MEDICATION AND COOPERATIVE WITH STAFF FOR HER CARE.SLEEPING IN BED.VISUAL CHECKS MADE ON HER FOR SAFETY. WILL CONTINUE WITH MONITORING.
--- NOTE | 2019-11-16 06:35 | NUR ---
SLEPT FOR 7:30 HOURS. REPOSITIONED AND GENTLY HANDLED DURING CARE. SHE IS IN BED.
[2019-11-16 07:30] VITALS: BP 132/64
--- NOTE | 2019-11-16 07:30 | NUR ---
GPS: received patient AOx1, patient asleep, , woke up assisted with ADL, patient seen by the PT, compliant with medication
[2019-11-16] MEDS: MEMANTINE HCL 5 MG TABLET PO SCH ×2 (08:46→20:50)
[2019-11-16] MEDS: DIVALPROEX SPRINKLE 125 MG CAP.SPRINK PO SCH ×2 (08:46→16:12)
[2019-11-16] MEDS: risperiDONE 0.5 MG TABLET PO SCH ×2 (08:46→20:50)
[2019-11-16] MEDS: MULTIVITAMINS,THERAPEUTIC TABLET PO SCH (08:46)
[2019-11-16] MEDS: CULTURELLE CAPSULE PO SCH ×2 (08:47→20:49)
[2019-11-16] MEDS: ISOSORBIDE MONONITRATE 30 MG TAB.SR.24H PO SCH (09:00)
[2019-11-16] MEDS: hydrALAZINE HCL 50 MG TABLET PO SCH ×2 (09:00→16:55)
[2019-11-16] MEDS: METOPROLOL TARTRATE 25 MG TABLET PO SCH ×2 (09:00→20:51)
[2019-11-16] MEDS: LISINOPRIL 5 MG TABLET PO SCH (09:00)
[2019-11-16] MEDS: PROTEIN SUPPLEMENT (PROSTAT) 30 ML LIQUID PO SCH ×2 (09:00→16:13)
[2019-11-16] MEDS: GLUCERNA SHAKE VANILLA 237 ML CAN PO SCH ×3 (09:20→16:12)
[2019-11-16] MEDS: LORAZEPAM 0.5 MG TABLET PO PRN ×2 (14:22→22:13)
[2019-11-16 16:00] VITALS: BP 151/59
[2019-11-16 20:43] VITALS: BP 136/62
[2019-11-16] MEDS: ATORVASTATIN 40 MG TABLET PO SCH (20:49)
[2019-11-17] MEDS: ACETAMINOPHEN 325 MG TABLET PO PRN ×2 (00:12→15:02)
--- NOTE | 2019-11-17 03:24 | NUR ---
RECEIVED PATIENT IN BORIS CHAIR BY NURSES STATION . NOTED WITH SOME CONFUSION AND INCOHERENT SPEECH. EASILY DISTRACTED AND COMMENTING ON EVERYTHING THAT PASSES BY. HOWEVER COMPLIANT WITH MEDICATION AND COOPERATIVE WITH STAFF FOR HER CARE.SLEEPING IN BED.VISUAL CHECKS MADE ON HER FOR SAFETY. WILL CONTINUE WITH MONITORING
[2019-11-17] MEDS: LOPERAMIDE HCL 2 MG CAPSULE PO PRN (05:41)
--- NOTE | 2019-11-17 06:56 | NUR ---
SLEPT WELL FOR 8HOURS.
--- NOTE | 2019-11-17 07:00 | NUR ---
GPS: received patient on her chair, calm,cooperative, patient no distress at this time,
[2019-11-17 07:30] VITALS: BP 169/64
[2019-11-17] MEDS: CULTURELLE CAPSULE PO SCH ×2 (08:16→20:53)
[2019-11-17] MEDS: DIVALPROEX SPRINKLE 125 MG CAP.SPRINK PO SCH ×2 (08:16→16:00)
[2019-11-17] MEDS: MULTIVITAMINS,THERAPEUTIC TABLET PO SCH (08:16)
[2019-11-17] MEDS: METOPROLOL TARTRATE 25 MG TABLET PO SCH ×2 (08:16→20:54)
[2019-11-17] MEDS: MEMANTINE HCL 5 MG TABLET PO SCH ×2 (08:16→20:53)
[2019-11-17] MEDS: risperiDONE 0.5 MG TABLET PO SCH (08:16)
[2019-11-17] MEDS: ISOSORBIDE MONONITRATE 30 MG TAB.SR.24H PO SCH (08:17)
[2019-11-17] MEDS: GLUCERNA SHAKE VANILLA 237 ML CAN PO SCH ×3 (08:18→16:01)
[2019-11-17] MEDS: LISINOPRIL 5 MG TABLET PO SCH (08:18)
[2019-11-17] MEDS: hydrALAZINE HCL 50 MG TABLET PO SCH ×2 (08:18→16:00)
[2019-11-17] MEDS: PROTEIN SUPPLEMENT (PROSTAT) 30 ML LIQUID PO SCH ×2 (08:19→16:01)
[2019-11-17] MEDS: LORAZEPAM 0.5 MG TABLET PO PRN ×2 (08:32→16:24)
--- NOTE | 2019-11-17 10:53 | NUR ---
Social Work Individual Therapy: pharmaceutical worker met with patient for brief counseling to address patient's aggressive and combative behavior. Patient presents with euthymic mood, however, pt is only alert and oriented to self only. Patient is unable to have a meaningful conversation with this greeting card writer due to her dementia. This greeting card writer was unable to have a proper conversation with pt at this time. This greeting card writer will follow-up with patient.
[2019-11-17 12:05] LABS: BASOPHILS % (AUTO) 0.6 % (0.0-2.0); EOSINOPHILS # (AUTO) 0.2 K/uL (0.0-0.7); EOSINOPHILS % (AUTO) 3.3 % (0.0-7.0); HEMATOCRIT 30.6 % (31.2-41.9); LYMPHOCYTES # (AUTO) 2.4 K/uL (20.0-40.0); LYMPHOCYTES % (AUTO) 46.4 % (20.5-51.5); MEAN CORPUSCULAR HEMOGLOBIN 30.6 uug (24.7-32.8); MEAN CORPUSCULAR HGB CONC 33 g/dL (32.3-35.6); MONOCYTES # (AUTO) 0.4 K/uL (2.0-10.0); MONOCYTES % (AUTO) 8.1 % (0.0-11.0); NEUTROPHILS # (AUTO) 2.2 K/uL (1.8-8.9); NEUTROPHILS % (AUTO) 41.6 % (38.5-71.5); PLATELET COUNT (AUTO) 208 K/uL (179-408); RED BLOOD CELL COUNT(AUTO) 3.25 MIL/uL (3.63-4.92); WHITE BLOOD COUNT (AUTO) 5.2 K/uL (3.8-11.8)
[2019-11-17] MEDS: risperiDONE 0.25 MG TABLET PO SCH ×2 (12:13→16:00)
[2019-11-17 12:40] LABS: BILIRUBIN,TOTAL 0.3 mg/dL (0.2-1.0); CREATININE 0.9 mg/dL (0.6-1.3); MAGNESIUM 1.9 mg/dL (1.8-2.4); POTASSIUM 4.5 mmol/L (3.5-5.1); TOTAL PROTEIN, SERUM 6.3 g/dL (6.4-8.2)
[2019-11-17 15:22] VITALS: BP 145/73
--- NOTE | 2019-11-17 18:07 | NUR ---
patient calm, cooperative, assisted with ADLS, patient ate dinner in dining room, had good interaction with peers, patient denies SI and HI , no distress, patient assisted to walk in hallway and able to stand up , patient tolerated the activity, will continue monitor
[2019-11-17 20:02] VITALS: BP 114/56
[2019-11-17] MEDS: ATORVASTATIN 40 MG TABLET PO SCH (20:53)
[2019-11-17] MEDS ORDERED: risperiDONE 0.5 MG TABLET PO SCH (21:00)
--- NOTE | 2019-11-18 05:49 | NUR ---
GPS/Rn: Pt received in bed, arose to name and respond verbally. no s/s of acute distress, no sob. Pt cooperative with routine medications and no behavior noted. Slept comfortable during night, and resting at this time, will continue to monitor.
--- NOTE | 2019-11-18 08:03 | NUR ---
Social Work Discharge Note: Patient will be discharged to a locked custodial facility to [address] [address]; ([phone]) via Ambulance transportation at 12PM. Senior Communications Specialist spoke with Luzmaria, Helminthologist at [facility]; ([phone]), who stated patient will be accepted at facility today. Patient is alert and oriented x1-2, and is not able to plan for self-care at this time, but is willing to accept care provided for her at the facility. Patient denies any suicidal or homicidal ideations. Patient is aware and agreeable with discharge plans. Patients izabela Bonds, ([phone]) is aware and agreeable with discharge plans. Patient will continue to follow-up with her (Psychiatrist) Dr. Sotelo and (Artists' Booking Representative) Dr. Mckeon at [address] [address]; ([phone]). Patient will follow-up at the center. Patient presents with euthymic mood and congruent affect.
[2019-11-18] MEDS: MULTIVITAMINS,THERAPEUTIC TABLET PO SCH (08:20)
[2019-11-18] MEDS: MEMANTINE HCL 5 MG TABLET PO SCH (08:20)
[2019-11-18] MEDS: CULTURELLE CAPSULE PO SCH (08:20)
[2019-11-18] MEDS: risperiDONE 0.25 MG TABLET PO SCH ×2 (08:20→13:39)
[2019-11-18] MEDS: LORAZEPAM 0.5 MG TABLET PO PRN (08:20)
[2019-11-18] MEDS: METOPROLOL TARTRATE 25 MG TABLET PO SCH (08:20)
[2019-11-18] MEDS: DIVALPROEX SPRINKLE 125 MG CAP.SPRINK PO SCH (08:20)
[2019-11-18] MEDS: ISOSORBIDE MONONITRATE 30 MG TAB.SR.24H PO SCH (08:21)
[2019-11-18 08:22] VITALS: BP 137/57
[2019-11-18] MEDS: hydrALAZINE HCL 50 MG TABLET PO SCH (08:22)
[2019-11-18] MEDS: LISINOPRIL 5 MG TABLET PO SCH (08:22)
[2019-11-18] MEDS: ACETAMINOPHEN 325 MG TABLET PO PRN (08:29)
[2019-11-18] MEDS: GLUCERNA SHAKE VANILLA 237 ML CAN PO SCH ×2 (08:48→13:39)
[2019-11-18] MEDS: PROTEIN SUPPLEMENT (PROSTAT) 30 ML LIQUID PO SCH (08:48)
--- NOTE | 2019-11-18 14:10 | NUR ---
Pt is being discharged to [facility] via ambulance. VS are stable, pt is calm and cooperative, A/O x1-2. All belongins returned, pt is unable to sign paperwork. Report was called and given to SUMMER Lanier
== END 2019-11-18 14:48 | DRG 885 ==
LOC: ER 14:31 → GPS 18:50 → GPSOV3 11-11 17:21 → GPS 11-14 23:22
PROVIDERS: ADMIT Psychiatry & Neurology Psychosomatic Medicine; ATTEND Nurse Practitioner Acute Care
DX: F25.0 Schizoaffective disorder, bipolar type (principal); F01.50 Vascular dementia, unspecified severity, without behavioral disturbance, psychotic disturbance, mood disturbance, and anxiety; N39.0 Urinary tract infection, site not specified; Z16.12 Extended spectrum beta lactamase (ESBL) resistance; E87.1 Hypo-osmolality and hyponatremia; E11.42 Type 2 diabetes mellitus with diabetic polyneuropathy; B96.20 Unspecified Escherichia coli [E. coli] as the cause of diseases classified elsewhere; D63.8 Anemia in other chronic diseases classified elsewhere; E86.1 Hypovolemia; E78.5 Hyperlipidemia, unspecified; J44.9 Chronic obstructive pulmonary disease, unspecified; I10 Essential (primary) hypertension; I25.10 Atherosclerotic heart disease of native coronary artery without angina pectoris; K21.9 Gastro-esophageal reflux disease without esophagitis; Z86.73 Personal history of transient ischemic attack (TIA), and cerebral infarction without residual deficits; F29 Unspecified psychosis not due to a substance or known physiological condition; E73.9 Lactose intolerance, unspecified
CPT/HCPCS: 36415; 70030-TC; 70450; 71045; 80164; 80307; 80329; 83735; 84443; 85025; 85730; 86625; 87046; 87077; 87086; 93005; G0480; G0480-TC; J0692; J1630; J2060

== ENCOUNTER 2020-03-27 02:34 | Inpatient (IN) | payer MEDICARE, OTHER ==
[~2020-03-27] VITALS: Ht 152.4 cm; Wt 56.7 kg
[~2020-03-27 02:34] MED LIST: ACET-2154 PO; AMIN30LI2 PO; ATOR40TA PO; CLON1PAT TD; DIVA125C2 PO; HYDR50TA68 PO; ISOS30TA6 PO; LOPE2CAP PO; MAGN400O6 PO; MEMA10TA PO; METO25TA6 PO; MULT-594 PO; NA P133E RC
--- NOTE | 2020-03-27 03:01 | NUR ---
at bedside for assessment
--- NOTE | 2020-03-27 03:30 | NUR ---
Intact DTI noted to patients heels, two superficial sacral skin openings noted
[2020-03-27] MEDS ORDERED: HYDR50TA68 PO (03:40)
[2020-03-27] MEDS ORDERED: MAG-55 PO (03:40)
[2020-03-27] MEDS ORDERED: RISP0.5T5 PO (03:40)
[2020-03-27] MEDS ORDERED: LISI2.5T2 PO (03:40)
[2020-03-27] MEDS ORDERED: IV NS 1000 ML 1,000 ML IV ONE ×2 (04:00→06:15)
[2020-03-27] MEDS ORDERED: levoFLOXacin 750 MG/D5W 150 ML PIGGYBACK IV ONE (04:00)
[2020-03-27] MEDS ORDERED: levoFLOXacin 750MG/D5W 150 ML IV ONE (04:09)
[2020-03-27 04:15] LABS: BASOPHILS # (AUTO) 0.1 K/uL (0.0-8.0); BASOPHILS % (AUTO) 0.3 % (0.0-2.0); EOSINOPHILS % (AUTO) 0.2 % (0.0-7.0); HEMATOCRIT 33.3 % (31.2-41.9); HEMOGLOBIN 11.4 g/dL (10.9-14.3); LYMPHOCYTES % (AUTO) 11.6 % (20.5-51.5); MEAN CORPUSCULAR HEMOGLOBIN 31.9 uug (24.7-32.8); MEAN CORPUSCULAR HGB CONC 34 g/dL (32.3-35.6); MEAN CORPUSCULAR VOLUME 93.5 fL (75.5-95.3); MONOCYTES # (AUTO) 1.8 K/uL (2.0-10.0); MONOCYTES % (AUTO) 10.4 % (0.0-11.0); NEUTROPHILS # (AUTO) 13.5 K/uL (1.8-8.9); NEUTROPHILS % (AUTO) 77.5 % (38.5-71.5); PLATELET COUNT (AUTO) 386 K/uL (179-408); RED BLOOD CELL COUNT(AUTO) 3.57 MIL/uL (3.63-4.92); WHITE BLOOD COUNT (AUTO) 17.4 K/uL (3.8-11.8)
[2020-03-27 04:22] LABS: CARBON DIOXIDE 22 mmol/L (21-32); CHLORIDE 108 mmol/L (98-107); CREATININE 2.4 mg/dL (0.6-1.3); GLUCOSE 128 mg/dL (74-106); POTASSIUM 5.5 mmol/L (3.5-5.1); UREA NITROGEN, BLOOD 69 mg/dL (7-18)
[2020-03-27 04:37] LABS: CREATINE KINASE, TOTAL 1478 U/L (26-192)
[2020-03-27 04:40] LABS: ALANINE AMINOTRANSFERASE 42 U/L (14-59); ALKALINE PHOSPHATASE 60 U/L (50-136); ASPARTATE AMINOTRANSFERASE 97 U/L (15-37); BILIRUBIN,TOTAL 0.4 mg/dL (0.2-1.0); FERRITIN 692 ng/mL (8-252); LACTATE DEHYDROGENASE 253 U/L (81-234); TOTAL PROTEIN, SERUM 8.4 g/dL (6.4-8.2)
[2020-03-27 04:52] LABS: *BILIRUBIN,URIN 1+ (NEGATIVE); *BLOOD, URINE NEGATIVE (NEGATIVE); *CLARITY,URINE CLEAR (CLEAR); *COLOR,URINE YELLOW (YELLOW); *KETONES,URINE TRACE (NEGATIVE); *UROBILINOGEN,URINE 0.2 E.U./dl (NORMAL); LEUKOCYTE ESTERASE ,URINE TRACE (NEGATIVE); NITRITE, URINE NEGATIVE (NEGATIVE); UGLUCOSE NEGATIVE (NEGATIVE)
--- NOTE | 2020-03-27 05:00 | NUR ---
New IV inserted in left forearm 22g
[2020-03-27] MEDS ORDERED: IV NORMAL SALINE 1000 ML BAG IV ONE (05:45)
[2020-03-27] MEDS ORDERED: ENOXAPARIN SODIUM 60 MG/0.6 ML DISP.SYRIN SQ ONE ×2 (05:45→06:25)
[2020-03-27] MEDS ORDERED: MAG HYDROX PO SCH (06:00)
[2020-03-27] MEDS ORDERED: ACETAMINOPHEN 325 MG TABLET PO SCH (06:00)
[2020-03-27] MEDS ORDERED: AL HYDROX PO SCH (06:00)
[2020-03-27] MEDS ORDERED: SIMETH PO SCH (06:00)
[2020-03-27] MEDS ORDERED: ONDANSETRON 4 MG/2 ML VIAL IV PRN (06:15)
[2020-03-27] MEDS ORDERED: ALBUTEROL SULFATE 8 GM HFA.AER.AD IH PRN (06:15)
--- NOTE | 2020-03-27 07:10 | NUR ---
no signs of acute distress noted, report given to Rosita WHEELER
--- NOTE | 2020-03-27 07:15 | NUR ---
Recieved pt in bed, reposition for comfort. VSS at this time.
[2020-03-27] MEDS ORDERED: ACETAMINOPHEN 650 MG SUPP.RECT RC ONE (08:07)
[2020-03-27] MEDS: ACETAMINOPHEN 650 MG SUPP.RECT RC PRN (08:08)
[2020-03-27] MEDS ORDERED: MAG HYDROX/AL HYDROX/SIMETH 30 ML LIQUID UDC PO PRN (08:15)
--- NOTE | 2020-03-27 08:16 | NUR ---
Tylenol Supp 650 mg given for temp 101.1. Cooling measures provided. Attempted to give oral fluids, pt very weak, not able to sit up long enough to drink.
[2020-03-27] MEDS ORDERED: MULTIVITAMINS,THERAPEUTIC TABLET PO SCH (09:00)
[2020-03-27] MEDS ORDERED: DIVALPROEX SPRINKLE 125 MG CAP.SPRINK PO SCH (09:00)
[2020-03-27] MEDS ORDERED: MEMANTINE HCL 10 MG TABLET PO SCH (09:00)
[2020-03-27] MEDS ORDERED: PROTEIN SUPPLEMENT (PROSTAT) 30 ML LIQUID PO SCH (09:00)
[2020-03-27] MEDS ORDERED: MEMANTINE HCL 5 MG TABLET PO SCH (09:00)
[2020-03-27] MEDS ORDERED: ISOSORBIDE MONONITRATE 30 MG TAB.SR.24H PO SCH (09:00)
[2020-03-27] MEDS ORDERED: IV D5/ 0.9% NACL 1,000 ML IV PRN (09:30)
[2020-03-27] MEDS ORDERED: PANTOPRAZOLE SODIUM 40 MG VIAL IV SCH (09:30)
[2020-03-27] MEDS ORDERED: MORPHINE SULFATE 2 MG/1 ML DISP.SYRIN IV PRN (09:30)
--- NOTE | 2020-03-27 09:33 | NUR ---
Spoke to Dr Joy RE pt unable to take Po meds due to generalized weakness.
[2020-03-27] MEDS: FAMOTIDINE. 20 MG/2 ML VIAL IV SCH (10:05)
[2020-03-27] MEDS ORDERED: FAMOTIDINE. 20 MG/2 ML VIAL IV ONE (10:08)
[2020-03-27 10:57] LABS: BACTERIA,URINE FEW /HPF (NONE SEEN); RBC,URINE 0-3 /HPF (0-3); SQUAMOUS EPITHELIAL CELL,UR FEW /HPF (NONE SEEN); WBC,URINE 0-3 /HPF (0-3)
[2020-03-27 10:58] LABS: URINE AMORPHOUS URATE MODERATE /HPF
--- NOTE | 2020-03-27 11:40 | NUR ---
Patient is resting comfortably in bed with eyes closed, NAD noted, VSS.
--- NOTE | 2020-03-27 15:54 | NUR ---
Dr De Leon in to see the pt.
--- NOTE | 2020-03-27 15:58 | NUR ---
dr. velásquez in ed to evaluate the pt.
[2020-03-27] MEDS: DEXAMETHASONE SOD PHOSPHATE 4 MG INJ IV SCH (17:09)
[2020-03-27] MEDS ORDERED: DEXAMETHASONE SOD PHOSPHATE 10 MG INJ ONE (17:12)
[2020-03-27] MEDS ORDERED: ATORVASTATIN 40 MG TABLET PO SCH (18:00)
--- NOTE | 2020-03-27 19:30 | NUR ---
Received patient in shift report, no sign sof acute distress noted
[2020-03-27] MEDS ORDERED: risperiDONE 0.5 MG TABLET PO SCH (21:00)
--- NOTE | 2020-03-28 05:00 | NUR ---
Beatriz ordered for sacral skin openings
[2020-03-28] MEDS ORDERED: Z GUARD REMEDY PASTE 57 GM TUBE TOP PRN (05:15)
--- NOTE | 2020-03-28 08:01 | NUR ---
Paged [facility] to speak to insulation and flooring assembler, awaiting call back.
--- NOTE | 2020-03-28 08:03 | NUR ---
Pt is awake and verbally responsive, able to make needs known. VSS at this time.
--- NOTE | 2020-03-28 08:34 | NUR ---
Spoke to Dr Joy, CT cancelled per his order.
[2020-03-28 08:49] LABS: BASOPHILS % (AUTO) 0.1 % (0.0-2.0); HEMATOCRIT 26.4 % (31.2-41.9); HEMOGLOBIN 9.1 g/dL (10.9-14.3); LYMPHOCYTES # (AUTO) 0.9 K/uL (20.0-40.0); LYMPHOCYTES % (AUTO) 9.8 % (20.5-51.5); MEAN CORPUSCULAR HEMOGLOBIN 33.2 uug (24.7-32.8); MEAN CORPUSCULAR HGB CONC 34 g/dL (32.3-35.6); MEAN CORPUSCULAR VOLUME 96.9 fL (75.5-95.3); MONOCYTES # (AUTO) 0.7 K/uL (2.0-10.0); MONOCYTES % (AUTO) 8.2 % (0.0-11.0); NEUTROPHILS # (AUTO) 7.2 K/uL (1.8-8.9); NEUTROPHILS % (AUTO) 81.9 % (38.5-71.5); PLATELET COUNT (AUTO) 313 K/uL (179-408); RED BLOOD CELL COUNT(AUTO) 2.73 MIL/uL (3.63-4.92); WHITE BLOOD COUNT (AUTO) 8.8 K/uL (3.8-11.8)
[2020-03-28 08:54] LABS: ALANINE AMINOTRANSFERASE 32 U/L (14-59); ALKALINE PHOSPHATASE 47 U/L (50-136); ASPARTATE AMINOTRANSFERASE 61 U/L (15-37); BILIRUBIN,DIRECT 0.1 mg/dL (0.0-0.2); BILIRUBIN,TOTAL 0.1 mg/dL (0.2-1.0); CARBON DIOXIDE 20 mmol/L (21-32); CHLORIDE 120 mmol/L (98-107); CREATINE KINASE, TOTAL 626 U/L (26-192); CREATININE 1.5 mg/dL (0.6-1.3); GLUCOSE 241 mg/dL (74-106); MAGNESIUM 2.2 mg/dL (1.8-2.4); PHOSPHOROUS 2.5 mg/dL (2.5-4.9); POTASSIUM 4.1 mmol/L (3.5-5.1); TOTAL PROTEIN, SERUM 6.9 g/dL (6.4-8.2); UREA NITROGEN, BLOOD 53 mg/dL (7-18)
[2020-03-28] MEDS ORDERED: DEXAMETHASONE SOD PHOSPHATE 10 MG INJ ONE (09:07)
[2020-03-28] MEDS ORDERED: FAMOTIDINE. 20 MG/2 ML VIAL IV ONE (09:07)
[2020-03-28] MEDS ORDERED: ENOXAPARIN SODIUM 30 MG/0.3 ML DISP.SYRIN ONE (09:07)
[2020-03-28] MEDS: FAMOTIDINE. 20 MG/2 ML VIAL IV SCH (09:24)
[2020-03-28] MEDS: DEXAMETHASONE SOD PHOSPHATE 4 MG INJ IV SCH (09:33)
[2020-03-28] MEDS: ENOXAPARIN SODIUM 30 MG/0.3 ML DISP.SYRIN SUBCUT SCH (09:35)
[2020-03-28] MEDS ORDERED: levoFLOXacin 500 MG/D5W 100 ML ONE (09:41)
[2020-03-28] MEDS: levoFLOXacin 500 MG/D5W 500 MG in PREMIXED 1 EACH IV SCH (09:41)
--- NOTE | 2020-03-28 20:27 | NUR ---
Report given to SUMMER Sharma patient transported to [facility] in stable condition.
--- NOTE | 2020-03-28 20:45 | NUR ---
[facility]. able to verbalize needs in simple words. patients asked for, "water". on 2L NC. v/s stable. no s/s of acute distress noted. Bilateral IV intact and patent. Running fluids at this time. will continue to monitor and assess.
[2020-03-28 21:11] VITALS: BP 149/59
[2020-03-29 00:01] VITALS: BP 154/58
--- NOTE | 2020-03-29 04:53 | NUR ---
cheryl schwab np contacted for Bp 162/62. orders received for clonidine 0.1mg every 8 hours for SBP >160.
[2020-03-29] MEDS: CLONIDINE HCL 0.1 MG TABLET PO PRN ×3 (05:20→23:21)
[2020-03-29 06:42] VITALS: BP 164/64
[2020-03-29] MEDS: DEXAMETHASONE SOD PHOSPHATE 4 MG INJ IV SCH (08:39)
[2020-03-29] MEDS: FAMOTIDINE. 20 MG/2 ML VIAL IV SCH (08:40)
--- NOTE | 2020-03-29 09:00 | NUR ---
RECEIVED PATIENT IN BED AWAKE ALERT TO SELF WITH CONFUSSION AND DISORIENTATION SHE IS UNCOOPERATIVE AT THIS TIME WANTS TO BE LEFT ALONE HAS 2 HEP LOCKS ON LEFT AND RIGHT FOREARM ASSISTED WITH REPOSITIONING MADE COMFORTABLE WILL CONTINUE TO OBSERVE.
[2020-03-29 09:07] LABS: EOSINOPHILS % (AUTO) 0.1 % (0.0-7.0); HEMATOCRIT 26.7 % (31.2-41.9); HEMOGLOBIN 8.9 g/dL (10.9-14.3); LYMPHOCYTES # (AUTO) 2.2 K/uL (20.0-40.0); LYMPHOCYTES % (AUTO) 26.7 % (20.5-51.5); MEAN CORPUSCULAR HEMOGLOBIN 33.4 uug (24.7-32.8); MEAN CORPUSCULAR HGB CONC 33 g/dL (32.3-35.6); MEAN CORPUSCULAR VOLUME 99.8 fL (75.5-95.3); MONOCYTES # (AUTO) 0.9 K/uL (2.0-10.0); MONOCYTES % (AUTO) 10.5 % (0.0-11.0); NEUTROPHILS # (AUTO) 5.2 K/uL (1.8-8.9); NEUTROPHILS % (AUTO) 62.7 % (38.5-71.5); PLATELET COUNT (AUTO) 302 K/uL (179-408); RED BLOOD CELL COUNT(AUTO) 2.68 MIL/uL (3.63-4.92); WHITE BLOOD COUNT (AUTO) 8.4 K/uL (3.8-11.8)
[2020-03-29] MEDS: ENOXAPARIN SODIUM 30 MG/0.3 ML DISP.SYRIN SUBCUT SCH (09:24)
[2020-03-29 09:27] LABS: CREATININE 1.2 mg/dL (0.6-1.3); MAGNESIUM 2.3 mg/dL (1.8-2.4); PHOSPHOROUS 1.9 mg/dL (2.5-4.9); POTASSIUM 3.6 mmol/L (3.5-5.1)
[2020-03-29 10:11] LABS: ABG BASE EXCESS -5.9 mmol/L; ABG HCO3 17.7 mmol/L; ABG PCO2 28.5 mmHg (35.0-45.0); ABG PH 7.412 (7.350-7.450); ABG PO2 113.9 mmHg (75.0-100.0); ABG SITE LEFT BRACHIAL; ABG TOTAL HEMOGLOBIN 9.4 G/dL (12.0-16.0); COHb 0.7 % (0.5-1.5); MetHb 0.2 % (0.0-1.5); O2Hb 97.7 % (94.0-97.0); VENT MODE Nasal Cannula
--- NOTE | 2020-03-29 12:00 | NUR ---
NOTED THAT PATIENT PULLED OUT ONE OF HER HEPLOCK WHEN ASKED HOW OR WHAT HAPPENED UNABLE TO UNDERSTAND WHAT SHE JUST DIS NO BLEEDING AT THIS TIME.WILL CONTINE TO OBSERVE
[2020-03-29 12:02] VITALS: BP 165/75
[2020-03-29 16:08] VITALS: BP 174/71
[2020-03-29] MEDS: PROTEIN SUPPLEMENT (PROSTAT) 30 ML LIQUID PO SCH (17:22)
[2020-03-29] MEDS: POTASSIUM PHOSPHATE MM 7.5 MMOL in IV NORMAL SALINE 97.5 ML IV SCH ×2 (17:39→22:03)
[2020-03-29 20:15] VITALS: BP 109/35
[2020-03-29] MEDS ORDERED: METOPROLOL TARTRATE 25 MG TABLET PO SCH (21:00)
[2020-03-29] MEDS: hydrALAZINE HCL 50 MG TABLET PO SCH (22:06)
--- NOTE | 2020-03-29 23:39 | NUR ---
dr. cline made aware of patients BP of 192/62 and bradycardic HR of 38-45 non sustained. clonidine PRN was administered for BP. orders received to discontinue clonidine PRN and Lopressor 25 mg. new order for vasotec 2.5 mg IV every 6 hours for SBP above 150. will carry out and follow up with patient.
[2020-03-30 00:06] VITALS: BP 185/67
[2020-03-30] MEDS: ENALAPRILAT DIHYDRATE 1.25 MG/1 ML VIAL IV PRN ×2 (04:03→04:15)
[2020-03-30 04:12] VITALS: BP 175/64
--- NOTE | 2020-03-30 04:16 | NUR ---
medication pulled from [facility] but wrong dose in drawer. dose pulled; enalaprilat 2.5/2ml. wasted. right dosed pulled. enalaprilat 1.25
[2020-03-30 07:24] LABS: BASOPHILS % (AUTO) 0.1 % (0.0-2.0); EOSINOPHILS % (AUTO) 0.2 % (0.0-7.0); HEMATOCRIT 24.8 % (31.2-41.9); HEMOGLOBIN 8.4 g/dL (10.9-14.3); LYMPHOCYTES # (AUTO) 2.6 K/uL (20.0-40.0); LYMPHOCYTES % (AUTO) 38.7 % (20.5-51.5); MEAN CORPUSCULAR HEMOGLOBIN 33.2 uug (24.7-32.8); MEAN CORPUSCULAR HGB CONC 34 g/dL (32.3-35.6); MEAN CORPUSCULAR VOLUME 98.3 fL (75.5-95.3); MONOCYTES # (AUTO) 0.7 K/uL (2.0-10.0); MONOCYTES % (AUTO) 10.6 % (0.0-11.0); NEUTROPHILS # (AUTO) 3.4 K/uL (1.8-8.9); NEUTROPHILS % (AUTO) 50.4 % (38.5-71.5); PLATELET COUNT (AUTO) 274 K/uL (179-408); RED BLOOD CELL COUNT(AUTO) 2.52 MIL/uL (3.63-4.92); WHITE BLOOD COUNT (AUTO) 6.7 K/uL (3.8-11.8)
--- NOTE | 2020-03-30 07:43 | NUR ---
dr. cline made aware of patient current BP of 187/72 and HR of 48. orders received for Norvasc 10 mg PO daily.
[2020-03-30 07:58] LABS: PHOSPHOROUS 3.2 mg/dL (2.5-4.9)
[2020-03-30] MEDS: AMLODIPINE 10 MG TABLET PO SCH (08:00)
[2020-03-30] MEDS: DEXAMETHASONE SOD PHOSPHATE 4 MG INJ IV SCH (08:01)
[2020-03-30] MEDS: ASPIRIN 81 MG TAB.CHEW PO SCH (08:01)
[2020-03-30] MEDS: FAMOTIDINE. 20 MG/2 ML VIAL IV SCH (08:01)
[2020-03-30] MEDS: hydrALAZINE HCL 50 MG TABLET PO SCH ×2 (08:29→21:00)
[2020-03-30] MEDS: PROTEIN SUPPLEMENT (PROSTAT) 30 ML LIQUID PO SCH ×3 (08:30→17:07)
[2020-03-30] MEDS: ENOXAPARIN SODIUM 30 MG/0.3 ML DISP.SYRIN SUBCUT SCH (08:31)
--- NOTE | 2020-03-30 09:13 | NUR ---
DR ROMO HERE AND I NOTIFIED HIM THAT I WAS UNABLE TO GIVE PATIENT HER HYDRLAZINE ORDERED DUE TO THE FACT THAT HE IS DIEGO AT 49 BUT DID GIVE HER THE NORVASC ORDERED STATED OKAY WILL MONITOR HER B/P TO SEE WHAT NEXT TO DO.
--- NOTE | 2020-03-30 09:30 | NUR ---
RECEIVED CALL FROM LAB AT 0915 RE D DIMER AT MORE THAN 35.[address] ROMO WITH NO NEW ORDERS AT THIS TIME.
[2020-03-30 09:31] LABS: BILIRUBIN,TOTAL 0.2 mg/dL (0.2-1.0); TOTAL PROTEIN, SERUM 6.4 g/dL (6.4-8.2)
[2020-03-30] MEDS: DIVALPROEX SPRINKLE 125 MG CAP.SPRINK PO SCH ×2 (10:26→17:06)
[2020-03-30 12:00] VITALS: BP 125/61
[2020-03-30 12:40] LABS: BILIRUBIN,DIRECT 0.1 mg/dL (0.0-0.2)
[2020-03-30 15:25] VITALS: BP 125/65
[2020-03-30 20:12] VITALS: BP 148/65
--- NOTE | 2020-03-30 21:05 | NUR ---
Hydralazine held due to pt pulse. HR 52 BP 148/65. Will continue to monitor BP and HR.
[2020-03-30] MEDS: Z GUARD REMEDY PASTE 57 GM TUBE TOP SCH (22:58)
[2020-03-31 00:09] VITALS: BP 174/73
[2020-03-31] MEDS ORDERED: ENALAPRILAT DIHYDRATE 1.25 MG/1 ML VIAL IV ONE (00:59)
[2020-03-31] MEDS: ENALAPRILAT DIHYDRATE 1.25 MG/1 ML VIAL IV PRN (01:08)
[2020-03-31 02:00] VITALS: BP 116/80
[2020-03-31 04:12] VITALS: BP 151/70
[2020-03-31] MEDS: DIVALPROEX SPRINKLE 125 MG CAP.SPRINK PO SCH ×2 (08:45→16:25)
[2020-03-31] MEDS: levoFLOXacin 500 MG/D5W 500 MG in PREMIXED 1 EACH IV SCH (08:45)
[2020-03-31] MEDS: DEXAMETHASONE SOD PHOSPHATE 4 MG INJ IV SCH (08:45)
[2020-03-31] MEDS: ASPIRIN 81 MG TAB.CHEW PO SCH (08:46)
[2020-03-31] MEDS: PROTEIN SUPPLEMENT (PROSTAT) 30 ML LIQUID PO SCH ×3 (08:46→16:26)
[2020-03-31] MEDS: FAMOTIDINE 20 MG TABLET PO SCH (08:47)
[2020-03-31] MEDS: hydrALAZINE HCL 50 MG TABLET PO SCH ×2 (08:48→21:21)
[2020-03-31] MEDS: AMLODIPINE 10 MG TABLET PO SCH (08:48)
[2020-03-31] MEDS: Z GUARD REMEDY PASTE 57 GM TUBE TOP SCH ×2 (09:28→21:21)
[2020-03-31] MEDS: ENOXAPARIN SODIUM 30 MG/0.3 ML DISP.SYRIN SUBCUT SCH (09:30)
[2020-03-31 12:00] VITALS: BP 171/67
--- NOTE | 2020-03-31 13:30 | NUR ---
BLOOD PRESSURE AT THIS TIME IS 171/67 HEART RATE IS 54 PATIENT HAS A PRN ORDER FOR VASOTEC CALLED PHARMACY TO SUPPLY BUT THE PHARMACIST STATED THAT THEY ARE OUT OF STOCK VASOTEC NOT AVAILABLE HE WILL ASK DR ROMO FOR REPLACEMENT.
--- NOTE | 2020-03-31 13:58 | NUR ---
DR PADILLA HERE NOTIFIED HIM OF PATIENTS BLOOD PRESSURE AT 171/67 WITH HEART RATE OF 54 PATIENT HAS A PRN ORDER FOR HYDRALAZINE UNABLE TO GIVE DUE TO LOW HEART RATE MD STATED WILL SEE PATIENT AND WILL ADJUST HER MEDICATIONS.
[2020-03-31] MEDS ORDERED: hydrALAZINE HCL 20 MG/1 ML VIAL IV PRN (14:30)
--- NOTE | 2020-03-31 14:30 | NUR ---
PER DR BRADEN AND THE PHARMACIST MICHAEL IT IS OKAY TO GIVE HYDRALAZINE TO PATIENT EVEN THOUGH HEART RATE IS LOW.
--- NOTE | 2020-03-31 14:50 | NUR ---
PATIENT SEEN AND EXAMINED BY DR CASTILLO WITH NEW ORDERS AND NOTED PATIENT REMAINS ON ROOM AIR WITH NO SHORTNESS OF BREATH AT THIS TIME
--- NOTE | 2020-03-31 18:00 | NUR ---
CURRENT BLOOD PRESSURE IS 147/78 RESTING WITH IVF IN PROGRESS ORDERED WILL CONTINUE TO OBSERVE.
[2020-03-31 18:05] VITALS: BP 147/78
[2020-03-31 19:28] VITALS: BP 150/77
[2020-04-01 04:00] VITALS: BP 145/77
[2020-04-01 06:18] LABS: BASOPHILS % (AUTO) 0.4 % (0.0-2.0); EOSINOPHILS % (AUTO) 0.3 % (0.0-7.0); HEMATOCRIT 30.2 % (31.2-41.9); HEMOGLOBIN 10.3 g/dL (10.9-14.3); LYMPHOCYTES # (AUTO) 2.5 K/uL (20.0-40.0); LYMPHOCYTES % (AUTO) 36.3 % (20.5-51.5); MEAN CORPUSCULAR HGB CONC 34 g/dL (32.3-35.6); MEAN CORPUSCULAR VOLUME 93.4 fL (75.5-95.3); MONOCYTES # (AUTO) 0.7 K/uL (2.0-10.0); MONOCYTES % (AUTO) 10.5 % (0.0-11.0); NEUTROPHILS # (AUTO) 3.7 K/uL (1.8-8.9); NEUTROPHILS % (AUTO) 52.5 % (38.5-71.5); PLATELET COUNT (AUTO) 327 K/uL (179-408); RED BLOOD CELL COUNT(AUTO) 3.23 MIL/uL (3.63-4.92)
[2020-04-01 06:45] VITALS: BP 138/60
[2020-04-01 07:31] LABS: BILIRUBIN,TOTAL 0.2 mg/dL (0.2-1.0); CREATININE 0.8 mg/dL (0.6-1.3); MAGNESIUM 1.6 mg/dL (1.8-2.4); TOTAL PROTEIN, SERUM 6.8 g/dL (6.4-8.2)
[2020-04-01 07:44] LABS: POTASSIUM 3.5 mmol/L (3.5-5.1)
[2020-04-01] MEDS ORDERED: MAGNESIUM OXIDE 400 MG TABLET PO ONE (09:15)
[2020-04-01] MEDS: PROTEIN SUPPLEMENT (PROSTAT) 30 ML LIQUID PO SCH ×3 (09:45→17:42)
[2020-04-01] MEDS: DIVALPROEX SPRINKLE 125 MG CAP.SPRINK PO SCH ×2 (09:46→17:42)
[2020-04-01] MEDS: AMLODIPINE 10 MG TABLET PO SCH (09:46)
[2020-04-01] MEDS: FAMOTIDINE 20 MG TABLET PO SCH (09:46)
[2020-04-01] MEDS: ASPIRIN 81 MG TAB.CHEW PO SCH (09:46)
[2020-04-01] MEDS: DEXAMETHASONE SOD PHOSPHATE 4 MG INJ IV SCH (09:47)
[2020-04-01] MEDS: hydrALAZINE HCL 50 MG TABLET PO SCH ×2 (09:47→21:12)
[2020-04-01] MEDS: Z GUARD REMEDY PASTE 57 GM TUBE TOP SCH ×2 (09:49→21:13)
[2020-04-01] MEDS: ENOXAPARIN SODIUM 30 MG/0.3 ML DISP.SYRIN SUBCUT SCH (09:49)
[2020-04-01 12:00] VITALS: BP 109/62
[2020-04-01 16:00] VITALS: BP 115/62
[2020-04-01] MEDS ORDERED: NEUTRA PHOS PACKET PO ONE (16:45)
[2020-04-01 21:18] VITALS: BP 150/79
[2020-04-02 01:04] VITALS: BP 154/84
[2020-04-02 05:37] VITALS: BP 152/85
[2020-04-02] MEDS: PROTEIN SUPPLEMENT (PROSTAT) 30 ML LIQUID PO SCH ×4 (08:00→16:39)
[2020-04-02] MEDS: ENOXAPARIN SODIUM 30 MG/0.3 ML DISP.SYRIN SUBCUT SCH (08:55)
[2020-04-02] MEDS: DIVALPROEX SPRINKLE 125 MG CAP.SPRINK PO SCH ×2 (08:56→16:39)
[2020-04-02] MEDS: ASPIRIN 81 MG TAB.CHEW PO SCH (08:58)
[2020-04-02] MEDS: FAMOTIDINE 20 MG TABLET PO SCH (08:58)
[2020-04-02] MEDS: ACETAMINOPHEN 650 MG SUPP.RECT RC PRN (08:58)
[2020-04-02] MEDS: DEXAMETHASONE SOD PHOSPHATE 4 MG INJ IV SCH ×2 (09:00→10:39)
[2020-04-02] MEDS ORDERED: levoFLOXacin 500 MG TABLET PO SCH (09:00)
[2020-04-02] MEDS: hydrALAZINE HCL 50 MG TABLET PO SCH (09:03)
[2020-04-02] MEDS: AMLODIPINE 10 MG TABLET PO SCH (09:32)
[2020-04-02] MEDS: Z GUARD REMEDY PASTE 57 GM TUBE TOP SCH (10:41)
[2020-04-02 11:37] VITALS: BP 131/73
--- NOTE | 2020-04-02 13:24 | NUR ---
Patient is resting Alert Oriented x1. No sob or distress noted. VS WNl, Decadron was given late as it was not available in the unit, all meds given as ordered. repositioned Q1 hr and as needed. IV is patent. all needs met at this time. will cont to monitor.
[2020-04-02] MEDS ORDERED: METOPROLOL TARTRATE 25 MG TABLET PO SCH (14:30)
[2020-04-02 14:59] VITALS: BP 150/89
[2020-04-02] MEDS ORDERED: ATOR10TA PO (15:02)
[2020-04-02] MEDS ORDERED: FAMO20TA8 PO (15:02)
[2020-04-02] MEDS ORDERED: ASPI81TA31 PO (15:02)
[2020-04-02] MEDS ORDERED: METO25TA6 PO (15:02)
[2020-04-02] MEDS ORDERED: ALBU8HFA4 IH (15:02)
[2020-04-02] MEDS ORDERED: CHOL10002 PO (15:02)
[2020-04-02] MEDS ORDERED: AMLO10TA59 PO (15:02)
[2020-04-02] MEDS ORDERED: PROT30LI PO (15:02)
[2020-04-02 15:09] LABS: BASOPHILS % (AUTO) 0.3 % (0.0-2.0); EOSINOPHILS % (AUTO) 0.1 % (0.0-7.0); HEMOGLOBIN 11.1 g/dL (10.9-14.3); LYMPHOCYTES # (AUTO) 0.5 K/uL (20.0-40.0); LYMPHOCYTES % (AUTO) 6.6 % (20.5-51.5); MEAN CORPUSCULAR HEMOGLOBIN 31.1 uug (24.7-32.8); MEAN CORPUSCULAR HGB CONC 34 g/dL (32.3-35.6); MEAN CORPUSCULAR VOLUME 92.2 fL (75.5-95.3); MONOCYTES # (AUTO) 0.3 K/uL (2.0-10.0); MONOCYTES % (AUTO) 4.4 % (0.0-11.0); NEUTROPHILS # (AUTO) 6.4 K/uL (1.8-8.9); NEUTROPHILS % (AUTO) 88.6 % (38.5-71.5); PLATELET COUNT (AUTO) 383 K/uL (179-408); RED BLOOD CELL COUNT(AUTO) 3.58 MIL/uL (3.63-4.92); WHITE BLOOD COUNT (AUTO) 7.3 K/uL (3.8-11.8)
[2020-04-02 15:26] LABS: CREATININE 0.8 mg/dL (0.6-1.3); POTASSIUM 4.3 mmol/L (3.5-5.1)
--- NOTE | 2020-04-02 19:06 | NUR ---
patient was discharge to [facility]. Report was given to admiting nurse. all need were met. patient vs wnl upon discharge. patient left with IV on right wrist per SNF request.
== END 2020-04-02 19:00 | DRG 871 ==
LOC: ER 02:39 → TRANSITION 08:00 → TELE3 03-28 20:07
PROVIDERS: ADMIT Internal Medicine; ATTEND Internal Medicine
DX: A41.89 Other specified sepsis (principal); U07.1 COVID-19; J12.89 Other viral pneumonia; I21.4 Non-ST elevation (NSTEMI) myocardial infarction; E43 Unspecified severe protein-calorie malnutrition; N17.0 Acute kidney failure with tubular necrosis; J96.01 Acute respiratory failure with hypoxia; N39.0 Urinary tract infection, site not specified; D68.69 Other thrombophilia; M62.82 Rhabdomyolysis; J44.0 Chronic obstructive pulmonary disease with (acute) lower respiratory infection; F02.81 Dementia in other diseases classified elsewhere, unspecified severity, with behavioral disturbance; J44.1 Chronic obstructive pulmonary disease with (acute) exacerbation; E87.2 Acidosis; D64.9 Anemia, unspecified; E78.5 Hyperlipidemia, unspecified; E83.42 Hypomagnesemia; E87.5 Hyperkalemia; E86.0 Dehydration; Z86.73 Personal history of transient ischemic attack (TIA), and cerebral infarction without residual deficits; Z86.19 Personal history of other infectious and parasitic diseases; Z20.828 Contact with and (suspected) exposure to other viral communicable diseases; Z88.0 Allergy status to penicillin; I25.10 Atherosclerotic heart disease of native coronary artery without angina pectoris; I11.9 Hypertensive heart disease without heart failure; F41.9 Anxiety disorder, unspecified; G30.9 Alzheimer's disease, unspecified; E88.09 Other disorders of plasma-protein metabolism, not elsewhere classified; E11.9 Type 2 diabetes mellitus without complications; F31.9 Bipolar disorder, unspecified; E11.42 Type 2 diabetes mellitus with diabetic polyneuropathy; N13.9 Obstructive and reflux uropathy, unspecified; F20.9 Schizophrenia, unspecified; Z68.24 Body mass index [BMI] 24.0-24.9, adult; R19.5 Other fecal abnormalities
CPT/HCPCS: 36415; 36600; 70030-TC; 71045; 83605; 83615; 83735; 84100; 85025; 85730; 86140; 87040; 87086; 87400; 93005; G0378; J0360; J1100; J1650; J1956; J3490; J7030; U0003